=== PATIENT | male | born 1940 | race Caucasian/White ===

== ENCOUNTER → 2023-11-16 14:27 | Outpatient (CLI) | payer MEDICARE, SELFPAY ==
[2023-11-16 15:32] LABS: Hemoglobin 14.4 g/dL (13.5-17.5); Mean Corpuscular HGB Conc 33.5 % (30-36); Mean Corpuscular Hemoglobin 28.4 PG (26-34); Mean Corpuscular Volume 84.9 fL (80-100); Platelet Count 237 X10^3/uL (150-400); Red Blood Cell Count 5.06 X10^6/uL (4.5-5.9); Red Cell Distribution Width 15.5 % (11.6-14.8); White Blood Cell Count 8.4 X10^3/uL (4.5-11.0)
[2023-11-16 15:44] LABS: HEMOLYSIS < 15 (0-50)
[2023-11-16 15:57] LABS: Alanine Aminotransferase 29 IU/L (<50); Albumin 4.5 g/dL (3.5-5.0); Albumin Globulin Ratio 1.5 (1.0-2.8); Alkaline Phosphatase 66 U/L (38-126); Aspartate Aminotransferase 33 IU/L (17-59); BUN Creatinine Ratio 22.4 (6-22); Bilirubin Total 0.6 mg/dL (0.2-1.3); Blood Urea Nitrogen 28 mg/dL (9-20); Calcium 10.1 mg/dL (8.4-10.2); Carbon Dioxide 34 mmol/L (22-32); Chloride 90 mmol/L (98-107); Cholesterol 163 mg/dL (140-199); Estimated Glomerular Filt Rate 57 mL/min (>60); Globulin 3.1 g/dL (1.7-4.1); Glucose 99 mg/dL (80-110); HDL Cholesterol 36 mg/dL (40-60); Potassium 3.5 mmol/L (3.4-5.1); Sodium 130 mmol/L (137-145); Total Protein 7.6 g/dL (6.3-8.2); Triglycerides 406 mg/dL (35-150)
[2023-11-16 16:42] LABS: TSH w/ Reflex to FT4 2.26 uIU/mL (0.47-4.68)
[2023-11-17 11:31] LABS: Prostate Specific Antigen 1.15 ng/mL (0.10-4.00)
[2023-11-18 17:17] LABS: Calcium 9.8 mg/dL (8.6-10.2); Parathyroid Hormone, Intact 60 pg/mL (15-65)
== END ==
PROVIDERS: PCP Internal Medicine; Referring Provider Internal Medicine; Visit Provider Internal Medicine
DX: N18.32 Chronic kidney disease, stage 3b (principal); E78.2 Mixed hyperlipidemia; I10 Essential (primary) hypertension
CPT/HCPCS: 80053; 80061; 82310; 83970; 84153; 84443; 85027

== ENCOUNTER → 2023-11-23 13:03 | Outpatient (CLI) | payer MEDICARE, SELFPAY ==
--- NOTE | 2023-11-23 13:06 | DI.RAD.S_ITS ---
PROCEDURE: XR LUMBAR SPINE 2-3V INDICATIONS: Right hip pain TECHNIQUE: 3 views of the lumbar spine were acquired. COMPARISON: None. FINDINGS: Bones: 5 [id number] vertebrae are present. Vertebroplasty plasty cement projects over T12 with anterior compression deformity of the said anterior vertebral body. Additional compression fractures are difficult to exclude due to osteopenia, kyphosis and scoliosis. Multilevel lumbar discectomy changes are noted. Soft tissues: Overlying bowel gas pattern is normal. Severe calcifications of the abdominal aorta noted. IMPRESSION: Anterior compression deformity of T12 with vertebroplasty cement already present. Additional compression fractures are difficult to exclude due to severe osteopenia, kyphosis and scoliosis Dictated by: Nigel Crisostomo M.D. on 11/23/2023 at 17:00 Approved by: Nigel Crsiostomo M.D. on 11/23/2023 at 17:03
--- NOTE | 2023-11-23 13:06 | DI.RAD.S_ITS ---
PROCEDURE: XR HIP W PEL IF DONE RT 2V INDICATIONS: Right hip pain TECHNIQUE: 2views of the hip were acquired. COMPARISON: [facility], CT, CT ABDOMEN PELVIS WITH CONTRAST, 12/07/2022, 11:51. FINDINGS: Bones: No fractures or dislocations. The visualized pelvic ring appears intact. Soft tissue calcification projects over the proximal right femoral shaft of unknown etiology. Discectomy changes of the partially visualized lumbar spine noted. Soft tissues: Partially visualized bowel gas pattern appears unremarkable. IMPRESSION: 2 x 2 cm soft tissue calcification projecting over the proximal lateral humeral shaft of unknown etiology. Consider prior traumatic injury, and both benign and malignant etiologies. If strong clinical suspicion remains, CT or MRI with contrast may provide additional diagnostic benefit. Dictated by: Nigel Crisostomo M.D. on 11/23/2023 at 16:51 Approved by: Nigel Crisostomo M.D. on 11/23/2023 at 17:00
== END ==
PROVIDERS: PCP Internal Medicine; Referring Provider Internal Medicine; Visit Provider Internal Medicine
DX: M43.8X4 Other specified deforming dorsopathies, thoracic region (principal); M25.851 Other specified joint disorders, right hip; M25.551 Pain in right hip; M85.88 Other specified disorders of bone density and structure, other site; M40.209 Unspecified kyphosis, site unspecified; M41.9 Scoliosis, unspecified; R52 Pain, unspecified
CPT/HCPCS: 72100; 73502

== ENCOUNTER → 2024-11-29 16:30 | Outpatient (ROUT) | payer MEDICARE, SELFPAY | LOC: LAB 16:31 | PROVIDERS: PCP Internal Medicine | DX: C44.722 Squamous cell carcinoma of skin of right lower limb, including hip (principal); L08.9 Local infection of the skin and subcutaneous tissue, unspecified; L57.8 Other skin changes due to chronic exposure to nonionizing radiation; X32.XXXA Exposure to sunlight, initial encounter | CPT/HCPCS: 87070; 87075; 87147; 87205 ==

== ENCOUNTER → 2024-12-10 15:01 | Outpatient (CLI) | payer MEDICARE, SELFPAY ==
[2024-12-10 15:34] LABS: Hematocrit 45.4 % (41-53); Hemoglobin 15.5 g/dL (13.5-17.5); Mean Corpuscular HGB Conc 34.2 % (30-36); Mean Corpuscular Hemoglobin 29.3 PG (26-34); Mean Corpuscular Volume 85.8 fL (80-100); Platelet Count 222 X10^3/uL (150-400); Red Blood Cell Count 5.29 X10^6/uL (4.5-5.9); Red Cell Distribution Width 14.3 % (11.6-14.8); White Blood Cell Count 7.8 X10^3/uL (4.5-11.0)
[2024-12-10 15:55] LABS: Alanine Aminotransferase 33 IU/L (<50); Albumin 4.8 g/dL (3.5-5.0); Albumin Globulin Ratio 1.8 (1.0-2.8); Alkaline Phosphatase 57 U/L (38-126); Aspartate Aminotransferase 35 IU/L (17-59); BUN Creatinine Ratio 24.2 (6-22); Bilirubin Total 0.6 mg/dL (0.2-1.3); Blood Urea Nitrogen 38 mg/dL (9-20); Calcium 9.8 mg/dL (8.4-10.2); Carbon Dioxide 34 mmol/L (22-32); Chloride 87 mmol/L (98-107); Cholesterol 131 mg/dL (140-199); Estimated Glomerular Filt Rate 43 mL/min (>60); Globulin 2.6 g/dL (1.7-4.1); Glucose 101 mg/dL (70-99); HDL Cholesterol 43 mg/dL (40-60); HEMOLYSIS < 15 (0-50); LDL Cholesterol Calculated 46 mg/dL (<100); Potassium 3.5 mmol/L (3.4-5.1); Sodium 130 mmol/L (137-145); Total Protein 7.4 g/dL (6.3-8.2); Triglycerides 210 mg/dL (35-150)
== END ==
PROVIDERS: PCP Internal Medicine; Referring Provider Internal Medicine; Visit Provider Internal Medicine
DX: I48.0 Paroxysmal atrial fibrillation (principal); E78.2 Mixed hyperlipidemia
CPT/HCPCS: 36415; 80053; 80061; 85027

== ENCOUNTER → 2024-12-28 14:45 | Outpatient (CLI) | payer MEDICARE, SELFPAY | PROVIDERS: PCP Internal Medicine; Visit Provider Internal Medicine | DX: R31.9 Hematuria, unspecified (principal); R30.0 Dysuria | CPT/HCPCS: 81002; 87086 ==

== ENCOUNTER → 2025-04-30 16:47 | Outpatient (CLI) | payer MEDICARE, SELFPAY ==
[2025-04-30 17:31] LABS: Appearance Urine UA CLEAR; Bilirubin Urine UA NEGATIVE (NEGATIVE); Color Urine UA YELLOW; Glucose Urine UA NEGATIVE (Negative); Ketones Urine UA NEGATIVE (NEGATIVE); Leukocyte Esterase Urine UA NEGATIVE (NEGATIVE); Nitrite Urine UA NEGATIVE (Negative); Occult Blood Urine UA NEGATIVE (Negative); Protein Urine UA NEGATIVE (Negative); Specific Gravity Urine UA 1.010 (1.000-1.035); Urobilinogen Urine UA 0.2 E.U./dL (0.2); pH Urine UA 7.0 (4.5-8.0)
[2025-04-30 18:24] LABS: Culture Indicated Urine Cult Not Indicated
== END ==
PROVIDERS: PCP Internal Medicine; Referring Provider Internal Medicine; Visit Provider Internal Medicine
DX: R31.9 Hematuria, unspecified (principal); R30.0 Dysuria
CPT/HCPCS: 81001

== ENCOUNTER → 2025-05-01 15:09 | Outpatient (CLI) | payer MEDICARE, SELFPAY ==
[2025-05-01 16:26] LABS: Hematocrit 42.2 % (41-53); Hemoglobin 14.5 g/dL (13.5-17.5); Mean Corpuscular HGB Conc 34.3 % (30-36); Mean Corpuscular Hemoglobin 29.2 PG (26-34); Mean Corpuscular Volume 85.2 fL (80-100); Platelet Count 192 X10^3/uL (150-400)
[2025-05-01 17:20] LABS: Blood Urea Nitrogen 30 mg/dL (9-20); Calcium 9.6 mg/dL (8.4-10.2); Carbon Dioxide 33 mmol/L (22-32); Chloride 86 mmol/L (98-107); Estimated Glomerular Filt Rate 51 mL/min (>60); Glucose 102 mg/dL (70-99); HEMOLYSIS 21 (0-50); Potassium 3.2 mmol/L (3.4-5.1); Sodium 131 mmol/L (137-145)
[2025-05-01 17:48] LABS: Prostate Specific Antigen 0.815 ng/mL (0.10-4.00)
== END ==
PROVIDERS: PCP Internal Medicine; Referring Provider Internal Medicine; Visit Provider Internal Medicine
DX: N13.8 Other obstructive and reflux uropathy (principal); N40.1 Benign prostatic hyperplasia with lower urinary tract symptoms; N18.31 Chronic kidney disease, stage 3a
CPT/HCPCS: 36415; 80048; 84153; 85027